=== PATIENT | female | born 1980 | race Caucasian/White ===

== ENCOUNTER 2018-06-16 10:29 | Emergency (ER) | payer SELFPAY ==
[2018-06-16 10:48] VITALS: BP 115/84
--- NOTE | 2018-06-16 11:12 | UC ---
Abdominal Pain Female HPI - HPI Summary HPI Summary: 37 y/o male presents to the urgent care c/o Epigastric pain, worse with empty stomach. Hx of ulcer 4-5 years ago. Nausea but no vomiting. Denies any diarrhea or bloody stools. States that she started prilosec which helped. Slim also states she found deer tick on back over weekend to back, developed rash all over body, fatigue . Concerned for lyme. - History of Current Complaint Chief Complaint: UCAbdominalPain Stated Complaint: ABDOMINAL PAIN Time Seen by Provider: 06/16/18 10:53 Hx Obtained From: Patient Hx Last Menstrual Period: 5 weeks Pain Intensity: 0 Allergies/Adverse Reactions: Allergies Allergy/AdvReac Type Severity Reaction Status Date / Time No Known Allergies Allergy Verified 06/16/18 10:35 Home Medications: Home Medications Terbinafine HCl [Lamisil] 1 % EX DAILY 06/16/18 [History Confirmed 06/16/18] PMH/Surg Hx/FS Hx/Imm Hx - Surgical History Surgical History: Yes Surgery Procedure, Year, and Place: left 5th finger repair; wisdom teeth - Family History Family History: no cardio vascular issues in family lineage - Social History Alcohol Use: Weekly Substance Use Type: Marijuana Smoking Status (MU): Light Every Day Tobacco Smoker Amount Used/How Often: 2 cigs most days Physical Exam Vital Signs: Initial Vital Signs Temp 98.9 F 06/16/18 10:36 Pulse 106 06/16/18 10:36 Resp 18 06/16/18 10:36 BP 115/84 06/16/18 10:36 Pulse Ox 100 06/16/18 10:36 Abd Pain Female Course/Dx - Course Course Of Treatment: Pt most likely with Lyme Disease on examination. Lyme serology ordered. Pt Rx Doxycycline PO . Advised that there is to possibility the serology returns negative the first 2 weeks of exposure. However strongly advised to f/u with Dr Smith or PCP for further management. Pt understood and agreed with plan of care. - Differential Dx/Diagnosis Differential Diagnosis: Appendicitis, Other - gastritis, gastri ulcers, GERD, tick bite, lyme disease, rash Provider Diagnoses: 1- Lyme disease. 2-GERD. 3- Nausea Discharge - Discharge Plan Condition: Stable Disposition: HOME Prescriptions: DOXYcycline CAP(*) [DOXYcycline 100MG CAP(*)] 100 mg PO BID #42 cap Omeprazole CAP* [Prilosec CAP* 20 MG] 20 mg PO DAILY #30 cap. Ondansetron ODT TAB* [Zofran 4 MG Odt TAB*] 4 mg PO Q6H PRN #12 tab.odt PRN Reason: Nausea Patient Education Materials: Lyme Disease (ED), Gastroesophageal Reflux Disease (ED) Referrals: Rick Becerra MD [Primary Care Provider] - 1 Week Elias Villeda MD [Medical Doctor] - 3 Days Additional Instructions: 1- Please take full course of antibiotic to avoid resistance. 2- Please f/u w/ your PCP in 2 weeks for Lyme Serology 3- F/u with Infectious Disease DR Smith if Lyme serology returns positive for Lyeme for further management in Lyme Disease 4- Please take Omeprazole PO as directed to alleviate symptoms. Avoid spicy food , chocolates, citric fruits, tomato sauce, etc. Avoid long periods of time w/o eating. increase fluid and eat soft meals until symptoms improve. Take Zofran PO if you continue to develop nausea. Increase fluid take. 5- If you develops fever or severe abdominal pain, vomiting please go to the ER , for further treatment. Otherwise f/u with your PCP or Relationship Counselor Dr Villeda in 1 week if not improvement of symptoms for further management. 6- Please F/u w/ your PCP of GI DR Villeda for further management in your GERD or gastric ulcer. - Billing Disposition and Condition Condition: STABLE Disposition: Home
== END 2018-06-16 11:29 | disposition home or self-care (01) ==
LOC: UCEAST 10:29
DX: A69.20 Lyme disease, unspecified (principal); K21.9 Gastro-esophageal reflux disease without esophagitis; R11.0 Nausea; F17.210 Nicotine dependence, cigarettes, uncomplicated
CPT/HCPCS: 99212; G0463